=== PATIENT | female | born 1985 | race Caucasian/White ===

== ENCOUNTER 2017-05-28 12:20 | Outpatient (CLI) | payer BC ==
--- NOTE | 2017-05-28 14:35 | ULT ---
SOFT TISSUE ULTRASOUND OF THE LEFT POSTERIOR SHOULDER REGION IN THE REGION OF PALPABLE CONCERN: INDICATIONS: Palpable abnormality within the left shoulder, adjacent to the scapula, present for greater than 5 ye ars. FINDINGS: Submitted navarro-scale and color Doppler images in the region of palpable interest, along the left post erior shoulder region, demonstrate no overt mass or fluid collection. IMPRESSION: No suspicious sonographic abnormality seen within the region of palpable concern in the posterior lef t shoulder. If clinically indicated, evaluation of this region with a left shoulder MRI with and wit hout contrast may be helpful if clinical concern persists. POS: [facility]
== END 2017-05-28 12:21 | disposition home or self-care (01) ==
LOC: ULT 12:20
PROVIDERS: ATTEND Family Medicine
DX: R22.2 Localized swelling, mass and lump, trunk (principal)
CPT/HCPCS: 76999

== ENCOUNTER 2018-07-02 08:04 | Outpatient (CLI) | payer BC ==
--- NOTE | 2018-07-02 09:38 | MRI ---
Exam: Left lower extremity MRI with and without IV contrast: HISTORY: Soft tissue mass that is painful With and without contrast MRI examination with attention to the thigh is performed. A skin marker is placed over the anterior thigh which denotes position of the palpable area of concern. No evidence for soft tissue mass or abnormal contrast enhancement. No evidence for underlying intramuscular mass or abnormal enhancement. Normal-appearing femur. IMPRESSION: No significant abnormal finding within the superficial soft tissue or underlying musculature of the t high to account for palpable area of concern.
== END 2018-07-02 08:05 | disposition home or self-care (01) ==
LOC: SCSMRI 08:04
PROVIDERS: ATTEND Specialist
DX: M79.9 Soft tissue disorder, unspecified (principal)

== ENCOUNTER 2018-09-10 05:53 | Day surgery (SDC) | payer BC ==
--- NOTE | 2018-09-08 11:35 | HP ---
HISTORY OF PRESENT ILLNESS: Kiley Nava, 32-year-old female with a left thigh lipoma. I initially saw her in the office and this was very vague. MRI scan was obtained, that was unremarkable. She reports a prolonged history of soft tissue mass, painful, located at junction distal mid third left thigh anteriorly. This is appreciated on physical exam. Plan is excision under sedation, local versus general anesthesia as an outpatient. She understands risks, benefits, and consents. She has river float trip planned for early August, will plan this for later August. She is followed by Dr. Cooper. MEDICATIONS: Taytulla, Adderall, Luvox, alprazolam. HABITS: Tobacco, none. Alcohol, none. Tobacco cessation 2013. PAST MEDICAL HISTORY: ADD, anxiety, endometriosis, chronic pain, TMJ, low back, childhood trauma. REVIEW OF SYSTEMS: Ten-point noncontributory. PHYSICAL EXAMINATION: VITAL SIGNS: Weight 188 pounds, height 5 feet 7 inches, 29 BMI, blood pressure 116/80, heart rate 87, temperature 97.3 degrees. HEAD, EYES, EARS, NOSE, AND THROAT: Unremarkable. LUNGS: Clear to auscultation. CARDIAC: Regular rate and rhythm. No murmur or gallop. ABDOMEN: Soft and nontender. EXTREMITIES: Unremarkable, except left anterior thigh junction mid to distal third. The left thigh anteriorly, there is a 5 cm soft tissue mass-like margin. ASSESSMENT: Soft tissue mass, left thigh. PLAN: Excision under anesthesia, TIVA, local versus general per Anesthesia's choice. Latter maybe the best choice considering her comorbidities. She understands risks and benefits Job ID: [id number]
[2018-09-09 08:57] VITALS: BMI 29.0
[2018-09-10] MEDS ORDERED: Lidocaine 1% w/Epinephrine 1:100K 20 ML VIAL ONE (06:37)
[2018-09-10] MEDS ORDERED: Bupivacaine HCl 0.5%/Epinephrine 1:200,000/PF 30 ml Vial ONE (06:37)
[2018-09-10] MEDS ORDERED: Bacitracin Zinc Ointment 30 gm TUBE ONE (06:38)
[2018-09-10] MEDS ORDERED: Lidocaine 2% PF 5 ML VIAL ONE ×2 (06:39)
[2018-09-10 06:43] LABS: #Basophils 0.1 thou/uL (0.0-0.2); #Lymphocytes 2.6 thou/uL (1.20-3.40); #Monocytes 0.6 thou/uL (0.11-0.59); #Neutrophils 3.4 thou/uL (1.40-6.50); %Basophils 0.8 % (0.0-1.0); %Eosinophils 0.2 % (0.0-10.0); %Monocytes 8.3 % (0.0-10.0); %Neutrophils 50.7 % (42.0-75.0); Hemoglobin 12.5 g/dL (12.0-16.0); Mean Corpuscular HGB CONC 32.4 g/dL (32.0-36.0); Mean Corpuscular Hemoglobin 31.1 pg (27.0-31.0); Mean Corpuscular Volume 95.9 fL (78.0-98.0); Mean Platelet Volume 6.6 fL (7.4-10.4); Platelet Count 331 thou/uL (130-400); RBC Distribution Width 11.9 % (11.5-14.5); Red Blood Cell (RBC) Count 4.03 mill/uL (4.20-5.40); White Blood Cell (WBC) Count 6.6 thou/uL (4.8-10.8)
[2018-09-10] MEDS ORDERED: Fentanyl 100 MCG/2 ML VIAL ONE ×3 (07:03→09:02)
[2018-09-10 07:08] LABS: BHCG - Serum Negative (NEGATIVE); Pregs Control Background? CLEAR/WHITE (CLR/WHITE); Pregs Control Bar Appear? YES (CONTROL BAR)
[2018-09-10] MEDS ORDERED: Midazolam HCl 2 mg/2 ml Vial ONE (07:15)
[2018-09-10] MEDS ORDERED: HYDROcodone/Acetaminophen 5/325 mg Tablet ONE (09:17)
--- NOTE | 2018-09-10 12:07 | OP ---
DATE OF PROCEDURE: 09/10/2018 PREOPERATIVE DIAGNOSIS: Lipoma, left thigh, anterior distal. POSTOPERATIVE DIAGNOSIS: Lipoma, left thigh, anterior distal. PROCEDURE PERFORMED: Excision of lipoma, 4.5 x 3 cm. SPECIMEN: A 4.25-cm incision, layered closure. ANESTHESIA: General, local of 0.5% Marcaine with epinephrine 30 mL mixed with 2% Xylocaine 10 mL, total volume mixture used. DESCRIPTION OF PROCEDURE: The patient was taken to the operating room, where under general anesthesia, left thigh was prepared with ChloraPrep and draped in routine fashion. Incision was made transversely over the distal anterior slightly medial thigh carried down through the skin and subcutaneous tissue and lipomatous mass was dissected free from the deep subcutaneous tissue and excised. Hemostasis was obtained with cautery. Specimen was submitted to Pathology. Subcutaneous tissue was approximated with 3-0 Monocryl, skin with subdermal 4-0 Monocryl and [place] glue applied. The patient tolerated the procedure well. Job ID: [id number]
[2018-09-10] MEDS ORDERED: Ondansetron PF 4 MG/2 ML Vial ONE (16:41)
[2018-09-10] MEDS ORDERED: PROPOFOL 200 MG/20 ML VIAL ONE (16:41)
[2018-09-10] MEDS ORDERED: Dexamethasone 20 MG/5 ML VIAL ONE (16:41)
[2018-09-10] MEDS ORDERED: Lidocaine 1% PF 5 ML VIAL ONE (16:41)
[2018-09-10] MEDS ORDERED: Ketorolac Tromethamine 30 MG/ML VIAL ONE (16:41)
== END 2018-09-10 10:00 | disposition home or self-care (01) ==
LOC: SDC 05:53
PROVIDERS: ATTEND Specialist
PROC: 0JBM0ZZ Excision of Left Upper Leg Subcutaneous Tissue and Fascia, Open Approach (ICD-10-PCS; principal; 2018-09-10)
DX: D17.24 Benign lipomatous neoplasm of skin and subcutaneous tissue of left leg (principal); F41.9 Anxiety disorder, unspecified; F98.8 Other specified behavioral and emotional disorders with onset usually occurring in childhood and adolescence; G89.29 Other chronic pain; M26.609 Unspecified temporomandibular joint disorder, unspecified side; Z87.891 Personal history of nicotine dependence
CPT/HCPCS: 36415; 84703; 85025; 88304; J0670; J1100; J1885; J2001; J2250; J2405; J2704; J3010

== ENCOUNTER 2018-12-03 10:09 | Outpatient (CLI) | payer BC | END 2018-12-03 10:10 | disposition home or self-care (01) | LOC: CTENTCT 10:09 | PROVIDERS: ATTEND Specialist | DX: J34.2 Deviated nasal septum (principal) | CPT/HCPCS: 70486 ==

== ENCOUNTER 2019-02-02 11:51 | Outpatient (CLI) | payer BC ==
--- NOTE | 2019-02-02 13:11 | ULT ---
RENAL ULTRASOUND HISTORY: History of urethral stricture COMPARISON: None FINDINGS: Right Kidney: Size: 9.6 x 4.8 x 5 cm. Abnormality: Normal cortical echotexture. No hydronephrosis. Left Kidney: Size: 10.1 x 6.0 x 5.9 cm. Abnormality: Normal cortical echotexture. No hydronephrosis Urinary bladder: Prevoid bladder volume was 824 cc. Postvoid bladder volume was 15.5 cc. Bilateral ur eteral jets are seen at the level of the posterior trigone. IMPRESSION: No hydronephrosis.
== END 2019-02-02 11:52 | disposition home or self-care (01) ==
LOC: BICULT 11:51
PROVIDERS: ATTEND Urology
DX: N35.92 Unspecified urethral stricture, female (principal)
CPT/HCPCS: 36415; 76770; 80048

== ENCOUNTER 2023-08-15 10:49 | Outpatient (CLI) | payer BC | END 2023-08-15 10:50 | disposition home or self-care (01) | LOC: SCSMRI 10:49 | PROVIDERS: ATTEND Family Medicine | DX: D49.2 Neoplasm of unspecified behavior of bone, soft tissue, and skin (principal) ==